=== PATIENT | female | born 1950 | race Caucasian/White ===

== ENCOUNTER 2017-04-10 14:51 | Inpatient (IN) | payer OTHER ==
--- NOTE | ~2017-04-10 | HP ---
History And Physical [place] [address] [facility] [place]. [address] NAME: GONZALO MUNIZ : 48 STATUS : ADM IN [facility]#: [id number] AGE: 67 ADM/REG DATE : 04/10/17 MR#: [id number] REPORT SERV DATE: 04/12/17 DICTATED BY: BREEZY SANTANA DATE: 04/10/17 REPORT STATUS : Draft TRANSCRIBED BY: MODMoo DATE: 04/10/17 DATE OF ADMISSION: 04/10/2017 HISTORY OF PRESENT ILLNESS: The patient is a 67-year-old white female, recently discharged from our facility on 04/01/2017 and went to a nursing facility. She was discharged last admission for COPD exacerbation and also has Pseudomonas growing in her sputum culture. She was there at the nursing facility for about a week when she had to re-present to [facility] with shortness of breath. She was found to have acute hypoxic and hypercapnic respiratory failure. They actually do not have a BiPAP machine, so they were not able to start her on anything. She was only on 2-4 L/minutes of oxygen, but she was having increased work of breathing. Chest x-ray shows some increased vascular congestion in her lungs. She had elevated white blood cell count of 20,000. They gave her Solu-Medrol, a dose of Levaquin, and nebulizer medications and transferred her to our facility. She arrived on a bilevel machine. The patient states that she was a little bit of cough with clear phlegm, but no fever. No chest pain or abdominal pain or vomiting. She has had some diarrhea for the past few weeks of a few times per day that is liquid. REVIEW OF SYSTEMS: The patient has no other significant complaints. PAST MEDICAL HISTORY: COPD; peripheral vascular disease; right breast cancer, status post surgical excision; skin cancers. PAST SURGICAL HISTORY: Tonsillectomy, right breast; lumpectomy; knee arthroscopy; hysterectomy; appendectomy; stent placed in common iliac artery; cataract surgery. ALLERGIES: REVIEWED. HOME MEDICATIONS: Reviewed. SOCIAL HISTORY: Continues to smoke cigarettes. Occasional alcohol. No illicit drugs. FAMILY HISTORY: Mother, stroke. Father, lung cancer. PHYSICAL EXAMINATION: VITAL SIGNS: Vitals per nursing flow sheet. GENERAL: No acute distress, alert. HEENT: Normocephalic, atraumatic. Pupils are equal and round. NECK: Trachea midline. HEART: Regular rate and rhythm. LUNGS: Clear to auscultation bilaterally. No wheezes, rales, or rubs. No accessory muscle use. Currently on bilevel of 10/5. Pulling adequate tidal volume. GI: Soft, nontender, nondistended. EXTREMITIES: No edema, cyanosis, or clubbing. LABS: Outside labs were reviewed. History And Physical [address] [address] NAME: GONZALO UMNIZ : [birth year] STATUS : ADM IN [facility]#: [id number] AGE: 67 ADM/REG DATE : 04/10/17 MR#: [id number] REPORT SERV DATE: 04/12/17 DICTATED BY: BREEZY SANTANA DATE: 04/10/17 REPORT STATUS : Draft TRANSCRIBED BY: ALEXYS DATE: 04/10/17 ASSESSMENT/PLAN: 1. Acute hypercapnic and hypoxic respiratory failure. 2. Chronic obstructive pulmonary disease exacerbation. 3. Failure to thrive. 4. Previous Pseudomonas in sputum. 5. Diarrhea. Continue bilevel machine, get ABG right now. Oxygen to keep sats between 90%-94%. We will continue with bronchodilators and IV steroids. Hold off on antibiotics for now. Check chest x-ray and labs. We will check stool for C diff. CEP/MODL Breezy Santana DO / [id number] CC: DO Pia Gaming M.D.
--- NOTE | ~2017-04-10 | DS ---
Discharge Summary [facility] [address] [place]. [address] NAME: GONZALO MUNIZ : 48 STATUS : DIS IN PAT#: [id number] AGE: 67 ADM/REG DATE : 04/10/17 MR#: [id number] REPORT SERV DATE: 04/14/17 DICTATED BY: MANNY GODOY DATE: 04/14/17 REPORT STATUS : Draft TRANSCRIBED BY: MODL DATE: 04/14/17 ADMISSION DATE: 04/10/2017 DISCHARGE DATE: 04/14/2017 DISCHARGE DIAGNOSES: 1. Acute hypercapnic respiratory failure. 2. Acute chronic obstructive pulmonary disease exacerbation, severe. 3. Moderate malnutrition, protein K count. 4. Failure to thrive. 5. Diarrhea, improved. 6. Anxiety and panic attacks. DISCHARGE MEDICATIONS: Plavix 75 mg daily, gabapentin 200 mg at bedtime, primidone 50 mg at bedtime and 200 mg with lunch, Inderal 60 mg with lunch, albuterol nebulizers three times a day p.r.n., Advair Diskus 250/50 one puff inhaled twice a day, verapamil ER 240 mg p.o. with lunch, ProAir two puffs inhaled four times a day p.r.n. for shortness of breath, Imodium p.r.n., Fosamax 70 mg q. week, Tylenol 650 mg every eight hours p.r.n. for arthritis or fever, Ellipta inhaler one puff inhaled daily, prednisone 40 mg p.o. daily for four more days, and Klonopin 0.5 mg p.o. twice a day p.r.n. for anxiety or panic attacks, prescription was written for this. HISTORY OF PRESENT ILLNESS: A 67-year-old white female who had two recent admissions to this hospital, who presented back from her a [facility] facility in respiratory failure. Please see initial H and P of Dr. Breezy Santana as patient was admitted to the Hospitalist Service for further evaluation and treatment. The patient was initially admitted to the intensive care and spent the first 24 hours of her hospitalization there and was transferred out on 04/12/2017 and care was assumed by the Hospitalist Service, where I began seeing the patient. She had improved from a respiratory standpoint and also her stools had improved as well. She continued on nebulizer therapy, steroid therapy, and oxygen therapy, and also had a discussion with the laboratory engineer about consulting Palliative Care to help the patient with advanced care plans and discussions going forward given her multiple admissions and her chronic respiratory status and COPD, however, the patient did not wish to pursue hospice at this time. She continued to improve. She was actually able to ambulate in the hallway with a room air sat of 93%. She was weaned from her IV steroids to p.o. prednisone, and she was trialed on some benzodiazepines with good effect. She was felt safe for discharge home with home health, home physical therapy to follow up with primary care in 7-10 days on 04/14/2017. She will also have an overnight oximetry study done through home health as an outpatient. I appreciate the guidance consultant's palliative care during this admission and the laboratory engineer's help with this patient. Questions were answered at bedside. Please note, greater than 30 minutes was spent on this discharge for medication teaching, followup planning, and further disposition. DICTATED BY: Manny Godoy NP Discharge Summary [address] [address] NAME: GONZALO MUNIZ : [birth year] STATUS : DIS IN PAT#: [id number] AGE: 67 ADM/REG DATE : 04/10/17 MR#: [id number] REPORT SERV DATE: 04/14/17 DICTATED BY: MANNY GODOY DATE: 04/14/17 REPORT STATUS : Draft TRANSCRIBED BY: ALEXYS DATE: 04/14/17 [facility] Manny Godoy NP / [id number] CC: MD Pia Garcia M.D.
[~2017-04-10 14:51] MED LIST: 8 HOUR650 MG PO; ADVAIR250 INH; ALBUTEROL0.63 MG/3 INH; CEFT2 PO; CLORTIMAZOLE EX; FLUCON1 PO; FOSAMAX70 MG PO; ILA60 PO; IMOD PO; INCRUSE ELLI62.5 MCG INH; INDE60 PO; ISOPTIN SR240 MG PO; MONISTAT V; NEUR100 PO; NYSTATIN-TRIAMC15 G1 TOP; P10 PO; PHENYLEPHRIN10 MG PO; PLAVIX PO; PRIM50B PO; PROAIR HFA INH; PROVHFA INH; SYMBICORT 160/41 INH INH; XYZAL5 MG PO; ZITH250 PO
[2017-04-10 15:47] LABS: CARBOXYHEMOGLOBIN 0.7 % (0-3); HCO3 (ACTUAL BICARBONATE) 23.5 MEQ/L (23-27); HEMOBLOGIN CONTENT 13.8 G/DL (12-16); INSTRUMENT SERIAL # 35151; METHEMOGLOBIN 0.7 % (0-3); PCO2 (CO2 TENSION) 38 MMHG (35-45); PO2 (O2 TENSION) 131 MMHG (79-93); SAMPLE Arterial; pH 7.41 (7.37-7.43)
[2017-04-10] MEDS ORDERED: INCRUSE ELLI62.5 MCG INH (16:35)
[2017-04-10 17:02] LABS: BASOPHILS 0 %; EOSINOPHILS 0.4 %; EOSINOPHILS ABSOLUTE 0.05 10/3/uL (0.0-0.53); HEMATOCRIT 40.1 % (36.0-48.0); HEMOGLOBIN 13.1 g/dL (12.0-16.0); IMMATURE GRANULOCYTES 0.9 %; LYMPHOCYTES 4.6 %; LYMPHOCYTES ABSOLUTE 0.53 10/3/uL (0.67-4.30); MEAN CORPUS HGB CONC 32.7 g/dL (32.0-36.0); MEAN CORPUSCULAR HEMOGLOB 31.5 pg (26.0-34.0); MEAN CORPUSCULAR VOLUME 96.4 fL (80-100); MEAN PLATELET VOLUME 10.1 fL (9.2-13.0); MONOCYTES 2.1 %; MONOCYTES ABSOLUTE 0.24 10/3/uL (0.21-1.20); NEUTROPHILS ABSOLUTE 10.71 10/3/uL (2.02-8.40); PLATELET COUNT 132 10/3/uL (150-400); RBC DISTRIBUTION WIDTH 15.5 % (12.0-16.0); RED CELL COUNT 4.16 10/6/uL (4.0-5.6); WHITE BLOOD CELLS 11.6 10/3/uL (4.5-10.5)
[2017-04-10 17:03] LABS: MANUAL DIFF NO %
[2017-04-10 17:12] LABS: INTERNATIONAL NORMAL RATI 1.1 UNITS (-); PARTIAL THROMBO TIME 23.5 SEC (22.5-37.2); PROTIME (NOT ORD) 14.2 SEC (12.0-14.5)
[2017-04-10 17:22] LABS: A/G RATIO 0.7 (0.7-1.9); ALBUMIN 2.8 G/DL (3.5-5.0); ALKALINE PHOSPHATASE 70 U/L (45-117); BUN (BLOOD UREA NITROGEN) 14 MG/DL (6-23); CALCIUM, SERUM 9.2 MG/DL (8.5-10.4); CHLORIDE, SERUM 103 MMOL/L (96-112); CO2 (CARBON DIOXIDE) 29 MMOL/L (24-34); FREE T4 0.99 NG/DL (0.76-1.46); GFR AFRICAN AMERICAN 109 ML/MIN (>=60); GFR NON AFRICAN AMERICAN 94 ML/MIN (>=60); GLOBULIN 3.8 G/DL (2.5-4.1); GLUCOSE, SERUM 81 MG/DL (60-99); PHOSPHORUS, SERUM 3.5 MG/DL (2.5-4.5); POTASSIUM, SERUM 4.2 MMOL/L (3.5-5.3); SGOT(AST) 37 U/L (5-40); SGPT(ALT) 29 U/L (5-65); SODIUM, SERUM 137 MMOL/L (135-148); TOTAL BILIRUBIN 0.5 MG/DL (0-1.2); TOTAL PROTEIN 6.6 G/DL (6.0-8.5); TROPONIN I 0.09 NG/ML (<0.05)
[2017-04-10 17:46] LABS: PROCALCITONIN 0.16 ng/mL (<0.5)
[2017-04-10 20:08] LABS: ALLENS TEST Pos; BE (BASE EXCESS) -2.2 MEQ/L (0 +/- 2.5); CARBOXYHEMOGLOBIN 0.4 % (0-3); HCO3 (ACTUAL BICARBONATE) 22.2 MEQ/L (23-27); HEMOBLOGIN CONTENT 12.3 G/DL (12-16); INSTRUMENT SERIAL # 35151; METHEMOGLOBIN 0.6 % (0-3); O2 CONTENT 16.9 VOL% (18-24); OPERATOR ID 35785; PCO2 (CO2 TENSION) 37 MMHG (35-45); PO2 (O2 TENSION) 106 MMHG (79-93); SAMPLE Arterial
[2017-04-10 20:57] LABS: ASCORBIC ACID (UR NOT ORDER) 20 (NEG); BILIRUBIN, URINE NEGATIVE (NEG); KETONE, URINE NEGATIVE (NEG); LEUKOCYTE ESTERASE(NOT OR NEG (NEG); WBC (NOT ORDERED) (RFLEX) 1 (0-5)
[2017-04-11 04:01] LABS: BASOPHILS 0 %; EOSINOPHILS 0 %; HEMOGLOBIN 11.1 g/dL (12.0-16.0); IMMATURE GRANULOCYTES 0.4 %; IMMATURE GRANULOCYTES ABSOLUTE 0.03 10/3/uL (0.0-0.11); LYMPHOCYTES 4.2 %; LYMPHOCYTES ABSOLUTE 0.31 10/3/uL (0.67-4.30); MEAN CORPUS HGB CONC 32.6 g/dL (32.0-36.0); MEAN CORPUSCULAR HEMOGLOB 31.4 pg (26.0-34.0); MEAN CORPUSCULAR VOLUME 96.3 fL (80-100); MEAN PLATELET VOLUME 9.8 fL (9.2-13.0); MONOCYTES 2.6 %; MONOCYTES ABSOLUTE 0.19 10/3/uL (0.21-1.20); NEUTROPHILS 92.8 %; NEUTROPHILS ABSOLUTE 6.79 10/3/uL (2.02-8.40); PLATELET COUNT 105 10/3/uL (150-400); RBC DISTRIBUTION WIDTH 15.4 % (12.0-16.0); RED CELL COUNT 3.53 10/6/uL (4.0-5.6); WHITE BLOOD CELLS 7.3 10/3/uL (4.5-10.5)
[2017-04-11 04:02] LABS: MANUAL DIFF NO %
[2017-04-11 04:16] LABS: BUN (BLOOD UREA NITROGEN) 13 MG/DL (6-23); CHLORIDE, SERUM 109 MMOL/L (96-112); CREATININE 0.38 MG/DL (0.55-1.02); GFR AFRICAN AMERICAN 126 ML/MIN (>=60); GFR NON AFRICAN AMERICAN 109 ML/MIN (>=60); POTASSIUM, SERUM 4.1 MMOL/L (3.5-5.3); SODIUM, SERUM 138 MMOL/L (135-148)
[2017-04-11 04:17] LABS: CO2 (CARBON DIOXIDE) 22 MMOL/L (24-34); GLUCOSE, SERUM 118 MG/DL (60-99)
[2017-04-11 05:24] LABS: PHOSPHORUS, SERUM 2.3 MG/DL (2.5-4.5)
[2017-04-12 05:13] LABS: BASOPHILS 0 %; EOSINOPHILS 0.1 %; EOSINOPHILS ABSOLUTE 0.01 10/3/uL (0.0-0.53); HEMOGLOBIN 12.1 g/dL (12.0-16.0); IMMATURE GRANULOCYTES 0.4 %; IMMATURE GRANULOCYTES ABSOLUTE 0.05 10/3/uL (0.0-0.11); LYMPHOCYTES 3.9 %; LYMPHOCYTES ABSOLUTE 0.44 10/3/uL (0.67-4.30); MEAN CORPUS HGB CONC 32.7 g/dL (32.0-36.0); MEAN CORPUSCULAR HEMOGLOB 31.3 pg (26.0-34.0); MEAN CORPUSCULAR VOLUME 95.9 fL (80-100); MONOCYTES 6.8 %; MONOCYTES ABSOLUTE 0.76 10/3/uL (0.21-1.20); NEUTROPHILS 88.8 %; NEUTROPHILS ABSOLUTE 9.88 10/3/uL (2.02-8.40); RBC DISTRIBUTION WIDTH 15.2 % (12.0-16.0); RED CELL COUNT 3.86 10/6/uL (4.0-5.6)
[2017-04-12 05:21] LABS: MANUAL DIFF NO %; PLATELET COUNT 159 10/3/uL (150-400); WHITE BLOOD CELLS 11.1 10/3/uL (4.5-10.5)
[2017-04-12 05:39] LABS: ALBUMIN 2.5 G/DL (3.5-5.0); BUN (BLOOD UREA NITROGEN) 12 MG/DL (6-23); CHLORIDE, SERUM 105 MMOL/L (96-112); CO2 (CARBON DIOXIDE) 26 MMOL/L (24-34); CREATININE 0.53 MG/DL (0.55-1.02); GFR AFRICAN AMERICAN 113 ML/MIN (>=60); GFR NON AFRICAN AMERICAN 98 ML/MIN (>=60); GLUCOSE, SERUM 104 MG/DL (60-99); PHOSPHORUS, SERUM 2.4 MG/DL (2.5-4.5); POTASSIUM, SERUM 4.9 MMOL/L (3.5-5.3); SODIUM, SERUM 138 MMOL/L (135-148)
[2017-04-14] MEDS ORDERED: P10 PO (10:08)
[2017-04-14] MEDS ORDERED: KLONO5 PO (10:09)
== END 2017-04-14 15:00 | disposition home health service (06) | DRG 189 ==
LOC: CCU 14:51 → 2SO 04-11 14:35
PROVIDERS: Internal Medicine Pulmonary Disease; Nurse Practitioner Family
DX: J96.21 Acute and chronic respiratory failure with hypoxia (principal); E44.0 Moderate protein-calorie malnutrition; J44.1 Chronic obstructive pulmonary disease with (acute) exacerbation; Z68.1 Body mass index [BMI] 19.9 or less, adult; J96.22 Acute and chronic respiratory failure with hypercapnia; R62.7 Adult failure to thrive; R19.7 Diarrhea, unspecified; I73.9 Peripheral vascular disease, unspecified; F41.0 Panic disorder [episodic paroxysmal anxiety]; R00.0 Tachycardia, unspecified; Z85.3 Personal history of malignant neoplasm of breast; Z85.828 Personal history of other malignant neoplasm of skin; Z98.890 Other specified postprocedural states; Z88.0 Allergy status to penicillin; Z88.1 Allergy status to other antibiotic agents; Z88.2 Allergy status to sulfonamides; Z88.5 Allergy status to narcotic agent; Z91.040 Latex allergy status
CPT/HCPCS: 36600; 71010; 80048; 80053; 80069; 81001; 82805; 82962; 83605; 83735; 84100; 84145; 84439; 84443; 84484; 85025; 85610; 85730; 87641; 94640; 94660; A9270-GY; J2920; J3475; P9045